=== PATIENT | male | born 1990 | race Caucasian/White ===

== ENCOUNTER 2021-04-22 13:35 | Inpatient (IN) ==
[2021-04-22] MEDS ORDERED: cefTRIAXone 1,000 MG in SODIUM CHLORIDE 0.9% 100 ML IV STA (14:56)
[2021-04-22] MEDS ORDERED: DEXAMETHASONE 4 MG/1 ML VIAL IV STA (14:56)
[2021-04-22 15:35] LABS: Hematocrit 39.9 VOL% (42.0-52.0); Immature Granulocytes % 0.5 %; Immature Granulocytes Absolute 0.01 #; Lymphocytes # 0.4 10*3/uL (1.4-4.0); Lymphocytes % 19.6 % (21.2-54.2); Mean Corpuscular HGB Conc 35.1 GM/DL (32-36); Mean Corpuscular Volume 86.7 FL (87-102); Mean Platelet Volume 10.1 FL (9.6-12.0); Monocytes % 10.7 % (1.7-12.7); Neutrophils % 69.2 % (38.7-73.9); Platelet Count 113 T/CUMM (130-400); Red Cell Distribution Width 12.1 % (9.3-17.3); White Blood Count 2.1 T/CUMM (4-12)
[2021-04-22] MEDS ORDERED: ONDANSETRON 4 MG/2 ML VIAL IV ONE (15:39)
[2021-04-22] MEDS ORDERED: ONDANSETRON 4 MG/2 ML VIAL ONE (15:39)
[2021-04-22 15:53] LABS: Albumin 3.9 G/DL (3.4-5.0); Calcium 8.8 MG/DL (8.5-10.1); Potassium 3.9 MMOL/L (3.5-5.1); Total Protein 7.3 G/DL (6.4-8.2)
[2021-04-22 15:59] LABS: Anisocytosis Slight; Atypical Lymphocytes Few; Band Neutrophils 1 % (0-10); Lymphocytes 19 % (20-55); Microcytosis Slight; Platelet Estimate Normal; Segmented Neutrophils 70 % (50-85); Total Cells Counted 100
[2021-04-22] MEDS ORDERED: ACETAMINOPHEN 500 MG TABLET PO STA (16:32)
[2021-04-22] MEDS ORDERED: AZITHROMYCIN INJ 500 MG in SODIUM CHLORIDE 0.9% 250 ML IV ONE ×2 (16:58→19:00)
[2021-04-22] MEDS ORDERED: ACETAMINOPHEN 325 MG TABLET PO PRN (17:04)
[2021-04-22] MEDS ORDERED: DEXTROSE 50% 25 GM/50 ML VIAL IV PRN (17:04)
[2021-04-22] MEDS ORDERED: hydrALAZINE 20 MG/1 ML VIAL IV PRN (17:04)
[2021-04-22] MEDS ORDERED: GLUCAGON 1 MG VIAL IM PRN (17:04)
[2021-04-22] MEDS ORDERED: HEPARIN 10,000 UNIT/10 ML VIAL IV ONE (17:30)
[2021-04-22 17:33] LABS: Ferritin 2875.8 ng/ml (26-388)
[2021-04-22 18:15] LABS: Hepatitis B Core IgM Quant 0.14 Index; Hepatitis B Surface Ag Quant < 0.10 Index; Hepatitis B Surface Ag Result Non-Reactive (NonReactive); Hepatitis C Virus Ab Quant 0.05 Index; Hepatitis C Virus Ab Result Non-Reactive (NonReactive)
[2021-04-22] MEDS ORDERED: IBUPROFEN 800 MG TABLET ONE (18:23)
[2021-04-22] MEDS ORDERED: IBUPROFEN 800 MG TABLET PO STA (18:29)
[2021-04-22] MEDS ORDERED: HEPARIN 5,000 UNIT/1 ML VIAL ONE (18:58)
[2021-04-22] MEDS: ALBUTEROL INHALER 18 GM INH SCH (20:30)
[2021-04-22] MEDS: ONDANSETRON 4 MG/2 ML VIAL IV PRN (21:15)
[2021-04-22] MEDS: FAMOTIDINE 20 MG TABLET PO SCH (21:15)
[2021-04-22] MEDS: DOCUSATE SODIUM 100 MG CAPSULE PO PRN (21:15)
[2021-04-22] MEDS: MELATONIN 3 MG TABLET PO PRN (21:15)
[2021-04-22] MEDS: ASCORBIC ACID 500 MG TABLET PO SCH (21:15)
[2021-04-22] MEDS: guaiFENesin/DM ER 600-30 MG TABLET PO SCH (21:15)
[2021-04-22] MEDS: ENOXAPARIN 40 MG/0.4 ML SYRINGE SUBCUT SCH (21:23)
[2021-04-23] MEDS: ALBUTEROL INHALER 18 GM INH SCH ×4 (02:50→18:40)
[2021-04-23 05:33] LABS: Hematocrit 43.8 VOL% (42.0-52.0); Immature Granulocytes % 0.5 %; Immature Granulocytes Absolute 0.01 #; Lymphocytes # 0.5 10*3/uL (1.4-4.0); Lymphocytes % 24.1 % (21.2-54.2); Mean Corpuscular HGB Conc 34.2 GM/DL (32-36); Mean Corpuscular Volume 88.8 FL (87-102); Mean Platelet Volume 10.4 FL (9.6-12.0); Monocytes % 9.4 % (1.7-12.7); Platelet Count 128 T/CUMM (130-400); Red Blood Count 4.93 MC/CUMM (3.8-5.5); Red Cell Distribution Width 12.4 % (9.3-17.3); White Blood Count 2.1 T/CUMM (4-12)
[2021-04-23 05:58] LABS: Risk Ratio 2.21; Thyroid Stimulating Hormone 0.547 uIU/ml (0.358-3.74); VLDL Cholesterol 21.8 MG/DL
[2021-04-23 06:01] LABS: Albumin 3.3 G/DL (3.4-5.0); Bilirubin,Total 1.6 MG/DL (0.20-1.00); Calcium 8.7 MG/DL (8.5-10.1); Osmolality,Calculated 276.7 MOS/KG (273-304); Potassium 4.3 MMOL/L (3.5-5.1); Total Protein 7.5 G/DL (6.4-8.2)
[2021-04-23 06:02] LABS: Lymphocytes 22 % (20-55); Platelet Estimate Normal; Segmented Neutrophils 70 % (50-85); Total Cells Counted 100
[2021-04-23 06:54] LABS: Sedimentation Rate-Westergren 38 MM/HR (0-15)
[2021-04-23] MEDS: ENOXAPARIN 40 MG/0.4 ML SYRINGE SUBCUT SCH (08:13)
[2021-04-23] MEDS: ASCORBIC ACID 500 MG TABLET PO SCH ×2 (08:14→20:29)
[2021-04-23] MEDS: DEXAMETHASONE 4 MG/1 ML VIAL IV SCH (08:14)
[2021-04-23] MEDS: guaiFENesin/DM ER 600-30 MG TABLET PO SCH ×2 (08:14→20:29)
[2021-04-23] MEDS: FAMOTIDINE 20 MG TABLET PO SCH ×2 (08:14→20:29)
[2021-04-23] MEDS: CHOLECALCIFEROL 1,000 UNIT TABLET PO SCH (08:14)
[2021-04-23] MEDS: ZINC GLUCONATE 50 MG TABLET PO SCH (08:15)
[2021-04-23] MEDS: IVERMECTIN 3 MG TABLET PO SCH (15:23)
[2021-04-23] MEDS: ONDANSETRON 4 MG/2 ML VIAL IV PRN (22:19)
[2021-04-24] MEDS: ALBUTEROL INHALER 18 GM INH SCH ×4 (01:43→18:44)
[2021-04-24 05:04] LABS: Hematocrit 41.7 VOL% (42.0-52.0); Hemoglobin 14.3 GM/DL (14.0-18.0); Immature Granulocytes % 0.5 %; Immature Granulocytes Absolute 0.03 #; Lymphocytes # 0.7 10*3/uL (1.4-4.0); Lymphocytes % 12.6 % (21.2-54.2); Mean Corpuscular HGB Conc 34.3 GM/DL (32-36); Mean Corpuscular Volume 88.2 FL (87-102); Monocytes % 10.6 % (1.7-12.7); Neutrophils % 76.3 % (38.7-73.9); Platelet Count 153 T/CUMM (130-400); Red Blood Count 4.73 MC/CUMM (3.8-5.5); Red Cell Distribution Width 12.2 % (9.3-17.3); White Blood Count 5.6 T/CUMM (4-12)
[2021-04-24] MEDS: CHOLECALCIFEROL 1,000 UNIT TABLET PO SCH (08:21)
[2021-04-24] MEDS: ENOXAPARIN 40 MG/0.4 ML SYRINGE SUBCUT SCH (08:21)
[2021-04-24] MEDS: guaiFENesin/DM ER 600-30 MG TABLET PO SCH ×2 (08:21→20:05)
[2021-04-24] MEDS: ASCORBIC ACID 500 MG TABLET PO SCH ×2 (08:22→20:04)
[2021-04-24] MEDS: FAMOTIDINE 20 MG TABLET PO SCH ×2 (08:22→20:05)
[2021-04-24] MEDS: ZINC GLUCONATE 50 MG TABLET PO SCH (08:22)
[2021-04-24] MEDS: DEXAMETHASONE 4 MG/1 ML VIAL IV SCH (08:23)
[2021-04-24] MEDS: IVERMECTIN 3 MG TABLET PO SCH (08:24)
[2021-04-24] MEDS: ONDANSETRON 4 MG/2 ML VIAL IV PRN ×2 (08:34→20:16)
[2021-04-24 12:43] LABS: Bilirubin,Urine Negative (Negative); Blood, Urine Negative (Negative); Glucose,Urine (UA) Negative (Negative); Ketones,Urine Negative (Negative); Mucus,Urine Occasional /LPF (Occasional); Nitrite,Urine Negative (Negative); Protein,Urine Negative; RBC,Urine 1 /HPF (0-4); Urine Appearance CLEAR (Clear); Urine Color Yellow (Yellow); Urine Specific Gravity 1.013 (1.001-1.035)
[2021-04-24] MEDS: clonazePAM 0.5 MG TABLET PO PRN ×2 (13:22→20:04)
[2021-04-24] MEDS: cefTRIAXone 1,000 MG in SODIUM CHLORIDE 0.9% 100 ML IV SCH (13:38)
[2021-04-24] MEDS: AZITHROMYCIN 250 MG TABLET PO SCH (13:38)
[2021-04-25] MEDS: ALBUTEROL INHALER 18 GM INH SCH ×4 (02:17→19:49)
[2021-04-25 05:27] LABS: Basophils % 0.2 % (0.0-0.8); Hematocrit 39.2 VOL% (42.0-52.0); Hemoglobin 13.3 GM/DL (14.0-18.0); Immature Granulocytes % 0.8 %; Immature Granulocytes Absolute 0.05 #; Lymphocytes # 0.6 10*3/uL (1.4-4.0); Lymphocytes % 9.4 % (21.2-54.2); Mean Corpuscular HGB Conc 33.9 GM/DL (32-36); Mean Corpuscular Volume 88.7 FL (87-102); Mean Platelet Volume 9.9 FL (9.6-12.0); Monocytes % 13.7 % (1.7-12.7); Neutrophils % 75.9 % (38.7-73.9); Platelet Count 172 T/CUMM (130-400); Red Blood Count 4.42 MC/CUMM (3.8-5.5); Red Cell Distribution Width 12.2 % (9.3-17.3); White Blood Count 6.6 T/CUMM (4-12)
[2021-04-25 05:47] LABS: Calcium 8.7 MG/DL (8.5-10.1); Osmolality,Calculated 273.1 MOS/KG (273-304); Potassium 4.5 MMOL/L (3.5-5.1)
[2021-04-25] MEDS: DEXAMETHASONE 4 MG/1 ML VIAL IV SCH (08:28)
[2021-04-25] MEDS: CHOLECALCIFEROL 1,000 UNIT TABLET PO SCH (08:28)
[2021-04-25] MEDS: guaiFENesin/DM ER 600-30 MG TABLET PO SCH ×2 (08:28→20:33)
[2021-04-25] MEDS: AZITHROMYCIN 250 MG TABLET PO SCH (08:28)
[2021-04-25] MEDS: ENOXAPARIN 40 MG/0.4 ML SYRINGE SUBCUT SCH (08:29)
[2021-04-25] MEDS: ASCORBIC ACID 500 MG TABLET PO SCH ×2 (08:29→20:33)
[2021-04-25] MEDS: ZINC GLUCONATE 50 MG TABLET PO SCH ×2 (08:29→10:07)
[2021-04-25] MEDS: FAMOTIDINE 20 MG TABLET PO SCH ×2 (08:29→20:33)
[2021-04-25] MEDS: IVERMECTIN 3 MG TABLET PO SCH (08:30)
[2021-04-25] MEDS: clonazePAM 0.5 MG TABLET PO PRN ×2 (08:58→19:49)
[2021-04-25 09:02] LABS: Ferritin 2564.8 ng/ml (26-388)
[2021-04-25] MEDS: methylPREDNISolone SOD SUC 125 MG/2 ML VIAL IV SCH ×3 (10:06→20:34)
[2021-04-25] MEDS: CHOLECALCIFEROL 5,000 UNIT TABLET PO SCH (10:06)
[2021-04-25] MEDS: cefTRIAXone 1,000 MG in SODIUM CHLORIDE 0.9% 100 ML IV SCH (12:29)
[2021-04-25] MEDS: MELATONIN 3 MG TABLET PO PRN (20:33)
[2021-04-26] MEDS ORDERED: guaiFENesin/CODEINE 5 ML LIQUID PO PRN (00:42)
[2021-04-26] MEDS: ALBUTEROL INHALER 18 GM INH SCH ×4 (00:45→19:29)
[2021-04-26] MEDS: methylPREDNISolone SOD SUC 125 MG/2 ML VIAL IV SCH ×4 (03:19→21:34)
[2021-04-26 06:17] LABS: Ferritin 2132.5 ng/ml (26-388)
[2021-04-26] MEDS: ZINC GLUCONATE 50 MG TABLET PO SCH (09:12)
[2021-04-26] MEDS: ENOXAPARIN 40 MG/0.4 ML SYRINGE SUBCUT SCH (09:13)
[2021-04-26] MEDS: FAMOTIDINE 20 MG TABLET PO SCH ×2 (09:13→21:34)
[2021-04-26] MEDS: CHOLECALCIFEROL 5,000 UNIT TABLET PO SCH (09:13)
[2021-04-26] MEDS: IVERMECTIN 3 MG TABLET PO SCH (09:13)
[2021-04-26] MEDS: AZITHROMYCIN 250 MG TABLET PO SCH (09:13)
[2021-04-26] MEDS: ASCORBIC ACID 500 MG TABLET PO SCH ×2 (09:13→21:34)
[2021-04-26] MEDS: clonazePAM 0.5 MG TABLET PO PRN ×2 (15:57→21:35)
[2021-04-26] MEDS: cefTRIAXone 1,000 MG in SODIUM CHLORIDE 0.9% 100 ML IV SCH (21:34)
[2021-04-26] MEDS: MELATONIN 3 MG TABLET PO PRN (23:20)
[2021-04-27] MEDS: ALBUTEROL INHALER 18 GM INH SCH ×4 (00:48→18:00)
[2021-04-27] MEDS: methylPREDNISolone SOD SUC 125 MG/2 ML VIAL IV SCH ×4 (03:53→21:53)
[2021-04-27 05:16] LABS: Basophils % 0.2 % (0.0-0.8); Hematocrit 41.9 VOL% (42.0-52.0); Hemoglobin 14.3 GM/DL (14.0-18.0); Immature Granulocytes % 2.6 %; Immature Granulocytes Absolute 0.22 #; Lymphocytes # 0.7 10*3/uL (1.4-4.0); Lymphocytes % 8.4 % (21.2-54.2); Mean Corpuscular HGB Conc 34.1 GM/DL (32-36); Mean Corpuscular Volume 87.8 FL (87-102); Mean Platelet Volume 10.2 FL (9.6-12.0); Monocytes % 6.2 % (1.7-12.7); Neutrophils % 82.6 % (38.7-73.9); Platelet Count 228 T/CUMM (130-400); Red Blood Count 4.77 MC/CUMM (3.8-5.5); Red Cell Distribution Width 11.5 % (9.3-17.3); White Blood Count 8.6 T/CUMM (4-12)
[2021-04-27 06:04] LABS: Albumin 2.7 G/DL (3.4-5.0); Bilirubin,Total 1.1 MG/DL (0.20-1.00); Calcium 8.8 MG/DL (8.5-10.1); Ferritin 1749.8 ng/ml (26-388); Osmolality,Calculated 278.8 MOS/KG (273-304); Total Protein 6.7 G/DL (6.4-8.2)
[2021-04-27] MEDS: ZINC GLUCONATE 50 MG TABLET PO SCH (09:09)
[2021-04-27] MEDS: AZITHROMYCIN 250 MG TABLET PO SCH (09:09)
[2021-04-27] MEDS: ASCORBIC ACID 500 MG TABLET PO SCH ×2 (09:09→21:53)
[2021-04-27] MEDS: CHOLECALCIFEROL 5,000 UNIT TABLET PO SCH (09:09)
[2021-04-27] MEDS: FAMOTIDINE 20 MG TABLET PO SCH ×2 (09:09→21:54)
[2021-04-27] MEDS: IVERMECTIN 3 MG TABLET PO SCH (09:10)
[2021-04-27] MEDS: ENOXAPARIN 40 MG/0.4 ML SYRINGE SUBCUT SCH (09:10)
[2021-04-27] MEDS ORDERED: OXYMETAZOLINE 0.05% NASAL SPRAY 15 ML BOTTLE BOTH NARES PRN (16:23)
[2021-04-27] MEDS: clonazePAM 0.5 MG TABLET PO PRN (21:53)
[2021-04-27] MEDS: cefTRIAXone 1,000 MG in SODIUM CHLORIDE 0.9% 100 ML IV SCH (21:53)
[2021-04-27] MEDS: DOCUSATE SODIUM 100 MG CAPSULE PO PRN (21:53)
[2021-04-27] MEDS: MELATONIN 3 MG TABLET PO PRN (21:54)
[2021-04-28] MEDS: ALBUTEROL INHALER 18 GM INH SCH ×4 (00:06→19:12)
[2021-04-28] MEDS: methylPREDNISolone SOD SUC 125 MG/2 ML VIAL IV SCH ×4 (03:57→20:58)
[2021-04-28 06:53] LABS: Albumin 2.7 G/DL (3.4-5.0); Calcium 8.8 MG/DL (8.5-10.1); Ferritin 1422.7 ng/ml (26-388); Osmolality,Calculated 276.1 MOS/KG (273-304); Potassium 4.3 MMOL/L (3.5-5.1); Total Protein 6.2 G/DL (6.4-8.2)
[2021-04-28] MEDS: ZINC GLUCONATE 50 MG TABLET PO SCH (09:21)
[2021-04-28] MEDS: ASCORBIC ACID 500 MG TABLET PO SCH ×2 (09:21→20:59)
[2021-04-28] MEDS: FAMOTIDINE 20 MG TABLET PO SCH ×2 (09:22→20:59)
[2021-04-28] MEDS: ENOXAPARIN 40 MG/0.4 ML SYRINGE SUBCUT SCH (09:22)
[2021-04-28] MEDS: CHOLECALCIFEROL 5,000 UNIT TABLET PO SCH (09:22)
[2021-04-28] MEDS: AZITHROMYCIN 250 MG TABLET PO SCH (09:22)
[2021-04-28] MEDS: cefTRIAXone 1,000 MG in SODIUM CHLORIDE 0.9% 100 ML IV SCH (20:58)
[2021-04-28] MEDS: MELATONIN 3 MG TABLET PO PRN (20:59)
[2021-04-28] MEDS: clonazePAM 0.5 MG TABLET PO PRN (20:59)
[2021-04-29] MEDS: ALBUTEROL INHALER 18 GM INH SCH ×4 (01:50→19:37)
[2021-04-29] MEDS: methylPREDNISolone SOD SUC 125 MG/2 ML VIAL IV SCH ×4 (03:04→21:09)
[2021-04-29 06:46] LABS: Basophils % 0.3 % (0.0-0.8); Hematocrit 40.1 VOL% (42.0-52.0); Hemoglobin 13.9 GM/DL (14.0-18.0); Immature Granulocytes % 4.4 %; Immature Granulocytes Absolute 0.57 #; Lymphocytes # 0.6 10*3/uL (1.4-4.0); Lymphocytes % 4.4 % (21.2-54.2); Mean Corpuscular HGB Conc 34.7 GM/DL (32-36); Mean Corpuscular Volume 87.2 FL (87-102); Mean Platelet Volume 10.4 FL (9.6-12.0); Monocytes % 5.3 % (1.7-12.7); Neutrophils % 85.6 % (38.7-73.9); Platelet Count 265 T/CUMM (130-400); Red Cell Distribution Width 11.6 % (9.3-17.3); White Blood Count 12.9 T/CUMM (4-12)
[2021-04-29 07:15] LABS: Albumin 2.7 G/DL (3.4-5.0); Bilirubin,Total 1.4 MG/DL (0.20-1.00); Calcium 8.5 MG/DL (8.5-10.1); Ferritin 1296.6 ng/ml (26-388); Osmolality,Calculated 276.1 MOS/KG (273-304); Potassium 4.1 MMOL/L (3.5-5.1); Total Protein 6.1 G/DL (6.4-8.2)
[2021-04-29] MEDS: CHOLECALCIFEROL 5,000 UNIT TABLET PO SCH (09:30)
[2021-04-29] MEDS: FAMOTIDINE 20 MG TABLET PO SCH ×2 (09:30→21:09)
[2021-04-29] MEDS: ENOXAPARIN 40 MG/0.4 ML SYRINGE SUBCUT SCH (09:30)
[2021-04-29] MEDS: ZINC GLUCONATE 50 MG TABLET PO SCH (09:30)
[2021-04-29] MEDS: ASCORBIC ACID 500 MG TABLET PO SCH ×2 (09:30→21:09)
[2021-04-29 10:53] LABS: Lymphocytes 1 % (20-55); Platelet Estimate Normal; Segmented Neutrophils 94 % (50-85); Total Cells Counted 100
[2021-04-29] MEDS: MELATONIN 3 MG TABLET PO PRN (21:09)
[2021-04-29] MEDS: cefTRIAXone 1,000 MG in SODIUM CHLORIDE 0.9% 100 ML IV SCH (21:09)
[2021-04-29] MEDS: clonazePAM 0.5 MG TABLET PO PRN (21:09)
[2021-04-30] MEDS: ALBUTEROL INHALER 18 GM INH SCH ×4 (02:13→19:28)
[2021-04-30] MEDS: methylPREDNISolone SOD SUC 125 MG/2 ML VIAL IV SCH (04:15)
[2021-04-30 05:49] LABS: Basophils % 0.1 % (0.0-0.8); Hematocrit 40.4 VOL% (42.0-52.0); Immature Granulocytes % 4.5 %; Immature Granulocytes Absolute 0.61 #; Lymphocytes # 0.5 10*3/uL (1.4-4.0); Lymphocytes % 3.4 % (21.2-54.2); Mean Corpuscular HGB Conc 34.7 GM/DL (32-36); Mean Corpuscular Volume 87.4 FL (87-102); Mean Platelet Volume 10.6 FL (9.6-12.0); Monocytes % 5.2 % (1.7-12.7); Neutrophils % 86.8 % (38.7-73.9); Platelet Count 262 T/CUMM (130-400); Red Blood Count 4.62 MC/CUMM (3.8-5.5); Red Cell Distribution Width 11.7 % (9.3-17.3); White Blood Count 13.4 T/CUMM (4-12)
[2021-04-30 06:18] LABS: Blood Urea Nitrogen 21 MG/DL (7-18); Calcium 8.3 MG/DL (8.5-10.1); Carbon Dioxide 26 MMOL/L (21-32); Estimated Glom Filtration Rate 161 ML/MIN; Ferritin 1483.1 ng/ml (26-388); Glucose 142 MG/DL (74-106); Osmolality,Calculated 277.8 MOS/KG (273-304); Potassium 4.3 MMOL/L (3.5-5.1); Sodium 137 MMOL/L (136-145)
[2021-04-30 10:05] LABS: ABG Base Excess 1.1 MMOL/L (-2.5-2.5); ABG HCO3 25.3 MMOL/L (20-26); ABG Oxygen Saturation 97.2 % (95-100); ABG PCO2 34.8 MM HG (35-48); ABG PH 7.454 (7.35-7.45); ABG PO2 91.4 MM HG (80-95); ABG TCO2 20.7 MMOL/L (23-27)
[2021-04-30 10:36] LABS: Platelet Estimate Normal; Segmented Neutrophils 90 % (50-85); Total Cells Counted 100
[2021-04-30] MEDS: ASCORBIC ACID 500 MG TABLET PO SCH ×2 (11:28→20:32)
[2021-04-30] MEDS: methylPREDNISolone SOD SUC 40 MG/1 ML VIAL IV SCH ×2 (11:28→18:25)
[2021-04-30] MEDS: ZINC GLUCONATE 50 MG TABLET PO SCH (11:29)
[2021-04-30] MEDS: FAMOTIDINE 20 MG TABLET PO SCH ×2 (11:29→20:33)
[2021-04-30] MEDS: ENOXAPARIN 40 MG/0.4 ML SYRINGE SUBCUT SCH (11:30)
[2021-04-30] MEDS: CHOLECALCIFEROL 5,000 UNIT TABLET PO SCH (11:37)
[2021-04-30] MEDS: cefTRIAXone 1,000 MG in SODIUM CHLORIDE 0.9% 100 ML IV SCH (20:32)
[2021-04-30] MEDS: DOCUSATE SODIUM 100 MG CAPSULE PO PRN (20:32)
[2021-04-30] MEDS: MELATONIN 3 MG TABLET PO PRN (20:32)
[2021-04-30] MEDS: clonazePAM 0.5 MG TABLET PO PRN (20:37)
[2021-05-01] MEDS: methylPREDNISolone SOD SUC 40 MG/1 ML VIAL IV SCH ×5 (00:19→23:40)
[2021-05-01] MEDS: ALBUTEROL INHALER 18 GM INH SCH ×4 (00:19→18:00)
[2021-05-01] MEDS: ENOXAPARIN 40 MG/0.4 ML SYRINGE SUBCUT SCH (09:10)
[2021-05-01] MEDS: CHOLECALCIFEROL 5,000 UNIT TABLET PO SCH (09:11)
[2021-05-01] MEDS: ASCORBIC ACID 500 MG TABLET PO SCH ×2 (09:11→21:26)
[2021-05-01] MEDS: ZINC GLUCONATE 50 MG TABLET PO SCH (09:11)
[2021-05-01] MEDS: FAMOTIDINE 20 MG TABLET PO SCH ×2 (09:11→21:26)
[2021-05-01] MEDS: cefTRIAXone 1,000 MG in SODIUM CHLORIDE 0.9% 100 ML IV SCH (21:25)
[2021-05-01] MEDS: DOCUSATE SODIUM 100 MG CAPSULE PO PRN (21:25)
[2021-05-01] MEDS: MELATONIN 3 MG TABLET PO PRN (21:26)
[2021-05-01] MEDS: clonazePAM 0.5 MG TABLET PO PRN (21:26)
[2021-05-02] MEDS: ALBUTEROL INHALER 18 GM INH SCH ×4 (00:10→19:20)
[2021-05-02] MEDS: methylPREDNISolone SOD SUC 40 MG/1 ML VIAL IV SCH ×3 (05:35→17:26)
[2021-05-02] MEDS: ENOXAPARIN 40 MG/0.4 ML SYRINGE SUBCUT SCH (09:06)
[2021-05-02] MEDS: CHOLECALCIFEROL 5,000 UNIT TABLET PO SCH (09:07)
[2021-05-02] MEDS: ASCORBIC ACID 500 MG TABLET PO SCH ×2 (09:07→22:07)
[2021-05-02] MEDS: ZINC GLUCONATE 50 MG TABLET PO SCH (09:07)
[2021-05-02] MEDS: FAMOTIDINE 20 MG TABLET PO SCH ×2 (09:07→22:07)
[2021-05-02] MEDS: MELATONIN 3 MG TABLET PO PRN (22:07)
[2021-05-03] MEDS: methylPREDNISolone SOD SUC 40 MG/1 ML VIAL IV SCH ×3 (00:30→14:23)
[2021-05-03] MEDS: ALBUTEROL INHALER 18 GM INH SCH ×3 (00:30→14:23)
[2021-05-03 07:08] LABS: Basophils % 0.2 % (0.0-0.8); Hematocrit 42.1 VOL% (42.0-52.0); Hemoglobin 15.1 GM/DL (14.0-18.0); Immature Granulocytes % 2.4 %; Immature Granulocytes Absolute 0.32 #; Lymphocytes # 0.5 10*3/uL (1.4-4.0); Mean Corpuscular HGB Conc 35.9 GM/DL (32-36); Mean Corpuscular Volume 85.4 FL (87-102); Mean Platelet Volume 10.3 FL (9.6-12.0); Monocytes % 5.5 % (1.7-12.7); Neutrophils % 87.9 % (38.7-73.9); Platelet Count 262 T/CUMM (130-400); Red Blood Count 4.93 MC/CUMM (3.8-5.5); Red Cell Distribution Width 11.9 % (9.3-17.3); White Blood Count 13.4 T/CUMM (4-12)
[2021-05-03 07:27] LABS: Calcium 8.5 MG/DL (8.5-10.1); Osmolality,Calculated 271.2 MOS/KG (273-304); Potassium 4.2 MMOL/L (3.5-5.1)
[2021-05-03 07:33] LABS: Lymphocytes 1 % (20-55); Segmented Neutrophils 95 % (50-85); Total Cells Counted 100
[2021-05-03 07:34] LABS: Platelet Estimate Adequate
[2021-05-03] MEDS: FAMOTIDINE 20 MG TABLET PO SCH ×2 (11:07→21:26)
[2021-05-03] MEDS: ZINC GLUCONATE 50 MG TABLET PO SCH (11:07)
[2021-05-03] MEDS: ASCORBIC ACID 500 MG TABLET PO SCH ×2 (11:07→21:25)
[2021-05-03] MEDS: ENOXAPARIN 40 MG/0.4 ML SYRINGE SUBCUT SCH (11:07)
[2021-05-03] MEDS: CHOLECALCIFEROL 5,000 UNIT TABLET PO SCH (11:07)
[2021-05-03] MEDS: MELATONIN 3 MG TABLET PO PRN (21:32)
[2021-05-04] MEDS: ALBUTEROL INHALER 18 GM INH SCH ×5 (01:00→20:30)
[2021-05-04 06:23] LABS: Basophils % 0.2 % (0.0-0.8); Eosinophils # 0.1 10*3/uL (0.0-0.87); Eosinophils % 0.4 % (0.00-10.9); Hematocrit 43.1 VOL% (42.0-52.0); Hemoglobin 14.6 GM/DL (14.0-18.0); Immature Granulocytes % 2.6 %; Immature Granulocytes Absolute 0.44 #; Lymphocytes # 1.4 10*3/uL (1.4-4.0); Lymphocytes % 8.3 % (21.2-54.2); Mean Corpuscular HGB Conc 33.9 GM/DL (32-36); Mean Corpuscular Volume 87.8 FL (87-102); Mean Platelet Volume 10.9 FL (9.6-12.0); Monocytes % 7.6 % (1.7-12.7); Neutrophils % 80.9 % (38.7-73.9); Platelet Count 240 T/CUMM (130-400); Red Blood Count 4.91 MC/CUMM (3.8-5.5); White Blood Count 16.9 T/CUMM (4-12)
[2021-05-04 07:10] LABS: Calcium 8.6 MG/DL (8.5-10.1); Osmolality,Calculated 278.8 MOS/KG (273-304); Potassium 3.9 MMOL/L (3.5-5.1)
[2021-05-04] MEDS: FAMOTIDINE 20 MG TABLET PO SCH ×2 (10:46→20:30)
[2021-05-04] MEDS: ENOXAPARIN 40 MG/0.4 ML SYRINGE SUBCUT SCH (10:46)
[2021-05-04] MEDS: methylPREDNISolone SOD SUC 40 MG/1 ML VIAL IV SCH ×2 (10:46→20:31)
[2021-05-04] MEDS: ASCORBIC ACID 500 MG TABLET PO SCH ×2 (10:47→20:30)
[2021-05-04] MEDS: CHOLECALCIFEROL 5,000 UNIT TABLET PO SCH (10:47)
[2021-05-04] MEDS: ZINC GLUCONATE 50 MG TABLET PO SCH (10:47)
[2021-05-05] MEDS: ALBUTEROL INHALER 18 GM INH SCH ×4 (01:35→18:05)
[2021-05-05] MEDS: ENOXAPARIN 40 MG/0.4 ML SYRINGE SUBCUT SCH ×2 (08:35→09:32)
[2021-05-05] MEDS: CHOLECALCIFEROL 5,000 UNIT TABLET PO SCH ×2 (08:35→09:33)
[2021-05-05] MEDS: FAMOTIDINE 20 MG TABLET PO SCH ×3 (08:35→20:20)
[2021-05-05] MEDS: ZINC GLUCONATE 50 MG TABLET PO SCH ×2 (08:36→09:33)
[2021-05-05] MEDS: ASCORBIC ACID 500 MG TABLET PO SCH ×3 (08:37→20:20)
[2021-05-05] MEDS: methylPREDNISolone SOD SUC 40 MG/1 ML VIAL IV SCH ×2 (08:37→09:34)
[2021-05-05] MEDS: predniSONE 20 MG TABLET PO SCH (12:20)
[2021-05-05] MEDS: MELATONIN 3 MG TABLET PO PRN (21:15)
[2021-05-06] MEDS: ALBUTEROL INHALER 18 GM INH SCH ×3 (00:45→18:59)
[2021-05-06] MEDS: CHOLECALCIFEROL 5,000 UNIT TABLET PO SCH (10:00)
[2021-05-06] MEDS: ENOXAPARIN 40 MG/0.4 ML SYRINGE SUBCUT SCH (10:00)
[2021-05-06] MEDS: ZINC GLUCONATE 50 MG TABLET PO SCH (10:00)
[2021-05-06] MEDS: FAMOTIDINE 20 MG TABLET PO SCH (10:00)
[2021-05-06] MEDS: predniSONE 20 MG TABLET PO SCH (10:00)
[2021-05-06] MEDS: ASCORBIC ACID 500 MG TABLET PO SCH (10:00)
[2021-05-06 12:09] VITALS: BP 107/68
== END 2021-05-06 14:30 | disposition home or self-care (01) | DRG 177 ==
LOC: N.ED 13:35 → N.EDINP 17:04 → SUATTDRO 17:04 → N.CC 04-23 07:16 → N.EDINP 04-25 13:06 → N.2E 04-25 13:41
PROVIDERS: ADMIT Phlebology; ATTEND Internal Medicine